=== PATIENT | female | born 1980 | race Caucasian/White ===

== ENCOUNTER 2017-08-19 22:14 | Emergency (ER) | payer OTHER, SELFPAY ==
[2017-08-19] MEDS ORDERED: Ibuprofen 200 MG TAB ONE (22:43)
== END 2017-08-19 22:49 | disposition home or self-care (01) ==
LOC: ERS 22:14
DX: K02.9 Dental caries, unspecified (principal); F17.210 Nicotine dependence, cigarettes, uncomplicated
CPT/HCPCS: 99406

== ENCOUNTER 2017-10-30 15:30 | Emergency (ER) | payer SELFPAY | END 2017-10-30 17:13 | disposition home or self-care (01) | LOC: ERS 15:30 | DX: J01.90 Acute sinusitis, unspecified (principal); B97.89 Other viral agents as the cause of diseases classified elsewhere; F17.210 Nicotine dependence, cigarettes, uncomplicated | CPT/HCPCS: 99281 ==

== ENCOUNTER 2020-06-23 23:21 | Emergency (ER) | payer SELFPAY ==
[2020-06-24] MEDS ORDERED: Albuterol 200 PUFF (6.7GM INHALER) ONE (00:06)
[2020-06-24] MEDS ORDERED: Acetaminophen 500 MG TAB ONE (00:07)
[2020-06-24] MEDS ORDERED: Ibuprofen 800 MG TAB ONE (00:07)
[2020-06-24 05:50] LABS: SARS-CoV-2 MS2 Positive; SARS-CoV-2 N Gene Negative; SARS-CoV-2 S Gene Negative; SARS-CoV-2 by NAA Not Detected (NotDetected); SARS-CoV-2 orf1ab Negative
--- NOTE | 2020-06-24 08:12 | RAD ---
RADIOGRAPH CHEST 1 VIEW: DATE: 06/24/2020 12:14 AM HISTORY: 40-year-old female with cough and fever FINDINGS: The visualized lung jones are clear. The cardiomediastinal silhouette and hilar shadows are normal. The lateral costophrenic angles are sharp. The osseous structures appear normal. There is no pneumothorax. IMPRESSION: Negative.
== END 2020-06-24 01:25 | disposition home or self-care (01) ==
LOC: ERS 23:21
DX: B34.9 Viral infection, unspecified (principal); Z20.822 Contact with and (suspected) exposure to COVID-19; F17.210 Nicotine dependence, cigarettes, uncomplicated
CPT/HCPCS: 71045; 87635; U0003

== ENCOUNTER 2020-09-22 17:34 | Emergency (ER) | payer OTHER, SELFPAY | END 2020-09-22 18:12 | disposition left against medical advice (07) | LOC: ERS 17:34 | DX: Z53.21 Procedure and treatment not carried out due to patient leaving prior to being seen by health care provider (principal) ==

== ENCOUNTER 2020-09-25 01:03 | Emergency (ER) | payer OTHER, SELFPAY ==
[2020-09-25 08:44] LABS: SARS-CoV-2 PCR by NAA Not Detected (NotDetected)
== END 2020-09-25 03:40 | disposition home or self-care (01) ==
LOC: ERS 01:03 → EEVIPCON 01:03 → ERS 03:40
DX: J06.9 Acute upper respiratory infection, unspecified (principal); Z20.822 Contact with and (suspected) exposure to COVID-19; F17.210 Nicotine dependence, cigarettes, uncomplicated
CPT/HCPCS: 87635; 99283; U0003; U0005

== ENCOUNTER 2021-12-07 22:10 | Emergency (ER) | payer SELFPAY ==
[~2021-12-07 22:10] MED LIST: Iopamidol-370 76% 500 ML 1 ML ONE
[2021-12-07 23:04] LABS: #Eosinphils 0.4 thou/uL (0.0-0.7); #Lymphocytes 4.2 thou/uL (1.20-3.40); #Monocytes 0.9 thou/uL (0.11-0.59); #Neutrophils 8.2 thou/uL (1.40-6.50); %Basophils 0.3 % (0.0-1.0); %Eosinophils 2.8 % (0.0-10.0); %Lymphocytes 30.5 % (21.0-51.0); %Monocytes 6.7 % (0.0-10.0); %Neutrophils 59.7 % (42.0-75.0); Hemoglobin 13.7 g/dL (12.0-16.0); Mean Corpuscular HGB CONC 34.5 g/dL (32.0-36.0); Mean Corpuscular Hemoglobin 31.9 pg (27.0-31.0); Mean Corpuscular Volume 92.6 fL (78.0-98.0); Mean Platelet Volume 8.4 fL (7.4-10.4); Platelet Count 260 thou/uL (130-400); RBC Distribution Width 13.2 % (11.5-14.5); White Blood Cell (WBC) Count 13.7 thou/uL (4.8-10.8)
[2021-12-07 23:35] LABS: ALT (SGPT) 24 U/L (8-55); AST (SGOT) 23 U/L (5-34); Albumin 4.2 g/dL (3.5-5.0); Alkaline Phosphatase 78 U/L (40-110); Anion Gap 17 mmol/L (10-20); BUN (Urea Nitrogen) 15 mg/dL (7.0-18.7); Bilirubin, Total 0.2 mg/dL (0.2-1.2); Calc. Creatinine Clearance 0 mL/min (70-130); Calcium 8.9 mg/dL (7.8-10.44); Carbon Dioxide 22 mmol/L (22-29); Chloride 104 mmol/L (98-107); Globulin 3.2 g/dL (2.4-3.5); Glucose 87 mg/dL (70-105); Potassium 4.4 mmol/L (3.5-5.1); Protein, Total 7.4 g/dL (6.0-8.3); Sodium 139 mmol/L (136-145)
== END 2021-12-08 02:01 | disposition home or self-care (01) ==
LOC: ERS 22:10
DX: R22.0 Localized swelling, mass and lump, head (principal); F17.210 Nicotine dependence, cigarettes, uncomplicated
CPT/HCPCS: 70491; 80053; 83605; 85025; Q9967